=== PATIENT | female | born 1990 | race Caucasian/White ===

== ENCOUNTER 2022-09-11 12:31 | Emergency (ER) | payer OTHER ==
[2022-09-11] MEDS ORDERED: Orphenadrine 100 MG Tab.ER PO STA (14:05)
[2022-09-11] MEDS: Ketorolac 60 MG/2 ML SDV IM ONE ×2 (14:42→14:44)
[2022-09-11] MEDS ORDERED: Ketorolac 30 MG/ML SDV IVPUSH ONE (14:43)
[2022-09-11] MEDS ORDERED: HYDROmorphone 0.5 MG/0.5 ML Syringe IVPUSH ONE (15:06)
[2022-09-11] MEDS ORDERED: Acetaminophen/HYDROcodone 325-5 MG Tab PO ONE (16:08)
== END 2022-09-11 16:44 | disposition home or self-care (01) ==
LOC: JD.ED 12:31
DX: M54.42 Lumbago with sciatica, left side (principal)
CPT/HCPCS: 72100; 96374; 96375; 99283; A9270; J1170; J1885